=== PATIENT | female | born 1950 | race Caucasian/White ===

== ENCOUNTER 2016-09-20 08:12 | Day surgery (SDC) | payer BC ==
[2016-09-10 11:52] LABS: HEMATOCRIT 35.8 % (36.0-48.0); HEMOGLOBIN 12.2 g/dL (12.0-16.0)
[2016-09-10 12:02] LABS: BUN (BLOOD UREA NITROGEN) 16 MG/DL (6-23); CHLORIDE, SERUM 102 MMOL/L (96-112); CO2 (CARBON DIOXIDE) 28 MMOL/L (24-34); CREATININE 0.71 MG/DL (0.55-1.02); GFR AFRICAN AMERICAN 104 ML/MIN (>=60); GFR NON AFRICAN AMERICAN 90 ML/MIN (>=60); GLUCOSE, SERUM 86 MG/DL (60-99); POTASSIUM, SERUM 4.7 MMOL/L (3.5-5.3); SODIUM, SERUM 139 MMOL/L (135-148)
--- NOTE | ~2016-09-20 | OP ---
Record Of Operation [facility] [address] [place]. [address] NAME: JAMAAL WRIGHT : 52 STATUS : [facility]#: [id number] AGE: 66 ADM/REG DATE : 09/20/16 MR#: [id number] REPORT SERV DATE: 09/26/16 DICTATED BY: Deborah TERRY DATE: 09/26/16 REPORT STATUS : Draft TRANSCRIBED BY: ZAHIRA DATE: 09/26/16 DATE OF PROCEDURE: 09/20/2016 PREOPERATIVE DIAGNOSES: 1. Basal cell carcinoma of the left paracentral lower forehead. 2. Defect of the left paracentral left lower forehead, secondary to Mohs micrographic surgical excision of basal cell carcinoma. POSTOPERATIVE DIAGNOSES: 1. Basal cell carcinoma of the left paracentral lower forehead. 2. Defect of the left paracentral left lower forehead, secondary to Mohs micrographic surgical excision of basal cell carcinoma. NAME OF OPERATION: 1. Surgical excisional preparation of left lower paracentral forehead defect. 2. Reconstruction of left lower paracentral forehead defect with rotation flap closure. FINDINGS: A 1.1 cm wide x 1.3 cm tall defect of the left lower para midline forehead with beveled edges, located 9 mm from the medial end of the eyebrow. INDICATIONS: This 66-year-old female, who had a biopsy-proven basal cell carcinoma removed by Mohs micrographic surgical technique on 09/19/2014. This resulted in a 1.1 cm wide x 1.3 cm tall defect of the left lower para midline forehead, located 9 mm from the medial brow. The pros and cons, alternatives, benefits, risks, limitations, and complications of reconstruction of the anticipated defect following Mohs surgery were discussed at a separate consultation prior to the Mohs surgery. We discussed the risks of brow asymmetry, scarring, reaction to sutures, recurrence of tumor, infection, imponderables. She understands and wishes to proceed. She already has a left eyebrow that is higher than the right. No guarantees were expressed. She understands and wishes to proceed. Proper consent was obtained. No guarantees were expressed. PROCEDURE IN DETAIL: She was taken into the operating room and given general oral endotracheal anesthesia in the supine position. The dressing on her forehead was removed revealing the large defect. The defect measured as stated above. The entire face was prepped with Hibiclens and saline followed by isopropyl alcohol. None of these solutions got in her eyes. It was noted that her eyes had previous blepharoplasty and the eyes tended to want to open constantly. Sterile drapes were applied. Steri-Strips were placed on the eyes to keep the eyes taped closed. The left eyebrow as stated above was higher than the right eyebrow. This was a large defect and not suited for horizontal closure. She had no wrinkles on her forehead. A vertical closure was the best option. A long fusiform ellipse was marked out in a vertical fashion extending into the left lower glabella and extending superiorly. This was to remove the beveled edges of the defect and to prepare the wound for closure. This was a 6.5 cm long ellipse. The forehead and glabella were injected with 1% Xylocaine with 1:100,000 epinephrine. Additional 0.5% Marcaine with 1:200,000 epinephrine was injected for postop comfort. Eight minutes elapsed for vasoconstriction. Record Of Operation [address] [address] NAME: JAMAAL WRIGHT : 52 STATUS : [facility] PAT#: [id number] AGE: 66 ADM/REG DATE : 09/20/16 MR#: [id number] REPORT SERV DATE: 09/26/16 DICTATED BY: Deborah TERRY DATE: 09/26/16 REPORT STATUS : Draft TRANSCRIBED BY: ZAHIRA DATE: 09/26/16 The #15 blade was used to incise the ellipse according to the markings and to remove the beveled edges of the defect, bevelling the incision slightly away from the defect. This was removed full-thickness skin and subcutaneous tissues down to the subgaleal layer. Hemostasis was obtained with the electrocautery. Flap development was accomplished with the [employer] needle tip cautery in the subgaleal layer bilaterally. This was for 2 cm on each side and flap elevation at the superior end of the defect for another 4 cm. This was a total of 6.5 cm x 4 cm and 4 cm x 4 cm superiorly. These flaps were then slightly rotated on themselves to help slightly correct the brow asymmetry. Closure was accomplished with 4- 0 and 5-0 Vicryl, except in the glabellar area were 6-0 Vicryl was used. The skin edges were coapted in the lower portion with Dermabond and the upper portion with 6-0 Prolene. The wounds have been cleansed with hydrogen peroxide. Mastisol and multiple layers of paper tape were applied in an antitension fashion to immobilize the forehead and secure the wound. She was awakened, extubated, and taken recovery room in good condition having tolerated the procedure well. Home going instructions were to leave the tape dry and intact. The patient was given prescriptions for Omnicef 300 mg #14 one p.o. b.i.d. (antibiotic), hydrocodone 7.5 mg/325 APAP #21 p.o. q.4 to 6 hours p.r.n. pain, and generic Zofran 8 mg ODT #6 one dissolved orally q.6 hours p.r.n. nausea or vomiting. Recheck in the office in six days. MAISHA/ZAHIRA Deborah Terry M.D. / [id number] CC: No Awad M.D.
[~2016-09-20 08:12] MED LIST: ASAB PO; AVALIDE1 TA1 PO; CALTRA600D PO; COZAAR100 MG PO; ESTRATEST PO; IBU-200200 MG PO; K-TABS10 MEQ PO; MICRO-K8 MEQ PO; MULTIPLE VIT PO; POTASS PO; POTASSIUM CL ER PO; SPIRO50 PO; SYN88 PO; T PO; VITAMIN B-122500 MCG SL; VITAMIN D1000 UNI1 PO
== END 2016-09-20 16:25 | disposition home or self-care (01) ==
LOC: SDC 08:12
PROVIDERS: Specialist
PROC: 0HX1XZZ Transfer Face Skin, External Approach (ICD-10-PCS; principal; 2016-09-20 09:30)
DX: C44.319 Basal cell carcinoma of skin of other parts of face (principal); I10 Essential (primary) hypertension; E03.9 Hypothyroidism, unspecified; M19.90 Unspecified osteoarthritis, unspecified site; H61.22 Impacted cerumen, left ear; Z90.89 Acquired absence of other organs; Z90.710 Acquired absence of both cervix and uterus; Z79.52 Long term (current) use of systemic steroids; Z79.899 Other long term (current) drug therapy; Z90.49 Acquired absence of other specified parts of digestive tract; Z98.890 Other specified postprocedural states; Z82.49 Family history of ischemic heart disease and other diseases of the circulatory system; Z96.651 Presence of right artificial knee joint
CPT/HCPCS: 80048; 82962; 85014; 85018; 88305; 93005; J0690; J2250; J2405; J2710; J3010